=== PATIENT | male | born 1975 | race Caucasian/White ===

== ENCOUNTER 2020-10-25 09:18 | Observation (INO) ==
[2020-10-25] MEDS ORDERED: Gadoteridol (CONTRAST) 279.3 MG/ML 10 ML IV ONE (15:22)
[2020-10-25] MEDS ORDERED: Acetaminophen IV 1 GM/100ML 100 ML IV PRN ×2 (20:04→20:24)
[2020-10-26 00:49] LABS: Rapid COVID-19 Molecular Undetected (Undetected)
[2020-10-26 05:21] LABS: ABS Eosinophils 0.1 10^3/ul (0-0.6); ABS Lymphocytes 2.1 10^3/ul (1.0-4.8); ABS Monocytes 0.6 10^3/ul (0-0.8); ABS Neutrophils 3.5 10^3/ul (1.5-7.7); Eosinophil % 1.4 %; Hematocrit 44 % (42-52); Hemoglobin 15.5 g/dL (14.0-18.0); Lymphocyte % 32.9 %; Mean Corpuscular HGB Conc 35 g/dL (31-36); Mean Corpuscular Hemoglobin 29 pg (27-31); Mean Corpuscular Volume 83 fL (80-94); Mean Platelet Volume 7.2 fL (7.4-10.4); Platelet Count 334 10^3/uL (150-450); Red Blood Count 5.33 10^6 /uL (4.18-5.48); Red Cell Distribution Width 14 % (10-15); White Blood Count 6.3 10^3/uL (3.5-10.8)
[2020-10-26 05:38] LABS: Albumin 4.2 g/dL (3.2-5.2); Albumin/Globulin Ratio 1.4 (1-3); Calcium 9.3 mg/dL (8.6-10.3); EGFR African American 71.9 (>60); EGFR Non-African American 59.4 (>60); Globulin 3.1 g/dL (2-4); Potassium 3.6 mmol/L (3.5-5.0); Total Protein 7.3 g/dL (6.4-8.9)
[2020-10-26] MEDS ORDERED: Lidocaine PATCH 5% PATCH TRANSDERM PRN (09:09)
[2020-10-26 16:10] VITALS: BP 132/83
[2020-10-26] MEDS ORDERED: Lidocaine Patch REMOVE PATCH PATCH OFF SCH (21:00)
== END 2020-10-26 18:00 | disposition home or self-care (01) ==
LOC: ED 09:18 → SSU 09:18 → SUATTDRO 22:07 → SSU 10-26 00:59
PROVIDERS: ADMIT Internal Medicine; ATTEND Internal Medicine